=== PATIENT | female | born 1960 | race Two or more races ===

== ENCOUNTER 2024-01-31 21:29 | Emergency (ER) | payer BC, SELFPAY ==
[2024-01-31 21:29] VITALS: BMI 26.4
[2024-01-31 22:11] VITALS: BP 153/70; PULSE 122; RESP 24; TEMP 39.6; O2SAT 93
--- NOTE | 2024-01-31 22:13 | PC.NURSE ---
sepsis alert called
--- NOTE | 2024-01-31 22:17 | PD.EDRME ---
Rapid Medical Screening Exam RME Arrival date/time: 01/31/24 21:29 63-year-old female past medical history of asthma presents emergency department complaining of cough and difficulty breathing. Chief Complaint: Flu Like Symptoms Time Seen by Provider: 01/31/24 22:09 Vital signs: Vital Signs Temperature 103.2 F H 01/31/24 22:11 Pulse Rate 122 H 01/31/24 22:11 Respiratory Rate 24 H 01/31/24 22:11 Blood Pressure 153/70 H 01/31/24 22:11 Pulse Oximetry (%) 93 L 01/31/24 22:11 Oxygen Delivery Method Room Air 01/31/24 22:11 Vital signs reviewed by provider: Yes
--- NOTE | 2024-01-31 22:18 | EKG_ITS ---
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
--- NOTE | 2024-01-31 22:18 | XR_ITS ---
Examination: AP lateral chest 2 views Technique: Upright AP lateral chest 2 views Exam date and time: January 31, 2024 1023 hrs. Indications: Sepsis protocol coughing today Findings: Mild accentuation of bronchovascular markings Biapical pleural thickening. Normal heart size No lobar pneumonia Impression: Bronchitis pattern
[2024-01-31 22:34] VITALS: PULSE 117
[2024-01-31] MEDS: SODIUM CHLORIDE RT SOL 0.9% 3 ML NEBU INH (22:34)
[2024-01-31] MEDS: ALBUTEROL RT 2.5 MG/0.5 ML NEBU 10 MG INH (22:34)
[2024-01-31] MEDS: IPRATROPIUM RT 0.5 MG/ 2.5 ML NEBU 1 MG INH (22:34)
[2024-01-31 22:39] VITALS: PULSE 117; PULSE 135; RESP 22; RESP 99; O2SAT 98
[2024-01-31 22:42] VITALS: TEMP 39.6
[2024-01-31 22:42] LABS: Basophils % (Auto) 0 % (0-2.5); Eosinophils # (Auto) 0.1 Thou/mm3 (0.0-0.5); Eosinophils % (Auto) 1 % (0-10); Hemoglobin 14.3 g/dL (12.0-16.0); Immature Granulocytes % (Auto) 1 % (0-0); Immature Granulocytes Auto 0.06 Thou/mm3 (0.00-0.00); Lymphocytes # (Auto) 0.9 Thou/mm3 (1.0-4.8); Lymphocytes % (Auto) 8 % (10-50); Mean Corpuscular Hemoglobin 28.9 pg (25.0-35.0); Mean Corpuscular Volume 85 fL (80-100); Monocytes # (Auto) 0.5 Thou/mm3 (0.0-0.8); Monocytes % (Auto) 5 % (0-12); Neutrophils # (Auto) 9.3 Thou/mm3 (1.8-7.7); Neutrophils % (Auto) 86 % (37-80); Nucleated Red Blood Cell % 0 /100 WBC (0); Platelet Count 148 Thou/mm3 (140-440); RDW Standard Deviation 40.3 fL (36.4-46.3); Red Blood Count 4.94 Miln/mm3 (4.00-5.20); White Blood Count 10.9 Thou/mm3 (3.6-11.0)
[2024-01-31] MEDS: ACETAMINOPHEN 500 MG TABLET 1000 MG PO (22:42)
[2024-01-31 22:55] LABS: Partial Thromboplastin Time 27.6 Seconds (22.0-36.0); Prothrombin Time 10.8 Seconds (9.0-12.2)
[2024-01-31 22:56] LABS: B-Type Natriuretic Peptide 24 pg/mL (0-100)
[2024-01-31 23:01] LABS: Alanine Aminotransferase 31 U/L (10-49); Albumin, Serum 4.8 gm/dL (3.4-4.8); Albumin/Globulin Ratio 1.8 (1.2-2.2); Alkaline Phosphatase 73 U/L (46-116); Anion Gap 7 (7-16); Aspartate Amino Transferase 28 U/L (0-34); BUN/Creatinine Ratio 11 Ratio (12-20); Bilirubin,Total 0.6 mg/dL (0.3-1.2); Blood Urea Nitrogen 9 mg/dL (9-23); Calcium 9.8 mg/dL (8.3-10.6); Calcium (Corrected) 9.8 mg/dL (8.5-10.1); Carbon Dioxide 25.8 mMol/L (20.0-31.0); Chloride 105 mMol/L (98-107); Creatinine (Component) 0.8 mg/dL (0.6-1.3); Estimated Creatinine Clearance 60.7 mL/min (>60); Globulin 2.6 gm/dL (2.3-3.5); Glucose 133 mg/dL (74-106); Lipase 39 U/L (12-53); Magnesium 2.1 mg/dL (1.6-2.6); Osmolality,Calculated 276 (275-295); Potassium 4.2 mMol/L (3.4-5.1); Sodium 138 mMol/L (136-145); Total Protein 7.4 gm/dL (5.7-8.2); Troponin I < 0.002 ng/mL (0.0-0.045); eGFR > 60 See Note
[2024-01-31 23:05] LABS: Procalcitonin 0.17 ng/ml (0.0-0.49)
--- NOTE | 2024-02-01 00:15 | EDNOTE_ITS ---
Upper Respiratory Inf. RME/HPI General Chief Complaint: Flu Like Symptoms Stated Complaint: COUGHING X2DAYS Time Seen by Provider: 01/31/24 22:09 Source: patient Arrival date/time: 01/31/24 21:29 63-year-old female past medical history of asthma presents emergency department complaining of cough and difficulty breathing for 2 days. Mode of arrival: ambulatory Limitations: no limitations RME / HPI RME / HPI Narrative: 01/31/24 21:29 63-year-old female past medical history of asthma presents emergency department complaining of cough and difficulty breathing. Related Data Home Medications ?Medication ?Instructions ?Recorded ?Confirmed albuterol sulfate 2.5 mg/3 mL 2.5 mg inhalation QID PRN Wheezing 03/29/20 06/25/21 (0.083 %) solution for nebulization albuterol sulfate 90 mcg/actuation 2 inh inhalation Q4H PRN Wheezing 03/29/20 06/25/21 breath activated powder inhaler (ProAir RespiClick) alendronate 70 mg tablet 70 mg PO QWEEK 03/29/20 06/25/21 budesonide-formoterol HFA 160 2 puff inhalation BID 03/29/20 06/25/21 mcg-4.5 mcg/actuation aerosol inhaler (Symbicort) multivitamin with minerals-folic 1 tab PO DAILY 03/29/20 06/25/21 acid 200 mcg chewable tablet ubrogepant 100 mg tablet (Ubrelvy) 200 mg PO DAILY PRN Migraine 03/29/20 06/25/21 Headache metoprolol succinate 50 mg 1 tab PO DAILY 06/24/21 06/25/21 tablet,extended release 24 hr Previous Rx's ?Medication ?Instructions ?Recorded hydrocodone 5 mg-acetaminophen 325 1 tab PO TID #20 tabs 06/21/21 mg tablet naproxen 500 mg tablet (Naprosyn) 500 mg PO BID PRN pain #30 tabs 06/21/21 albuterol sulfate 1.25 mg/3 mL 1.25 mg (3 mL) inhalation QID PRN 12/30/22 solution for nebulization shortness of breath or wheezing #75 mL benzonatate 100 mg capsule 100 mg PO TID #14 caps 09/21/23 benzonatate 100 mg capsule 100 mg PO BID #20 caps 02/01/24 oseltamivir 75 mg capsule (Tamiflu) 75 mg PO BID 5 days #10 caps 02/01/24 Allergies Allergy/AdvReac Type Severity Reaction Status Date / Time almond Allergy Abdominal Verified 09/21/23 09:43 Pain cashew nut Allergy Abdominal Verified 09/21/23 09:43 Pain pistachio nut Allergy Abdominal Verified 09/21/23 09:43 Pain Review of Systems Review of Systems Systems Reviewed: All systems reviewed, normal except as documented Constitutional Constitutional: Reports system reviewed and no additional complaints, except as documented, Denies body ache(s), Denies chills and Denies fever(s) Eyes Eyes: Reports system reviewed and no additional complaints, except as documented and Denies change in vision ENT Ears, Nose, Mouth, and Throat: Reports system reviewed and no additional complaints, except as documented, Denies disequilibrium, Denies dizziness, Denies sore throat and Denies vertigo Cardiovascular Cardiovascular: Reports system reviewed and no additional complaints, except as documented, Denies chest pain and Reports dyspnea Respiratory Respiratory: Reports system reviewed and no additional complaints, except as documented, Reports cough and Reports dyspnea Gastrointestinal Gastrointestinal: Reports system reviewed and no additional complaints, except as documented, Denies abdominal pain, Denies nausea and Denies vomiting Musculoskeletal Musculoskeletal: Reports system reviewed and no additional complaints, except as documented, Denies abnormal gait and Denies arthralgias Integumentary/Breasts Skin/Breast: Reports system reviewed and no additional complaints, except as documented, Denies erythema, Denies rash and Denies wounds Neurologic Neurologic: Reports system reviewed and no additional complaints, except as documented, Denies abnormal gait, Denies disequilibrium, Denies dizziness and Denies vertigo Past Medical History Past Medical History NEUROLOGIC: Positive Neurological Disorders, Migraine (TAKES MED) and Head Trauma (2009 MD VISIT DUE TO FALL); Negative Seizures CARDIAC: Positive Cardiac Disorders and Hypertension (TAKES MED); Negative Congestive Heart Failure, Edema, Cellulitis (CAST TO RIGHT ARM DUE TO FALL 06/20/21 FOR THIS PROC) or Varicose Veins RESPIRATORY: Positive Asthma (HAS INHALER) and Pneumonia (HOSP 1978); Negative Chronic Obstructive Pulmonary Disease (COPD) (HAS INHALERS), Tuberculosis, Pulmonary Embolism or Sleep Apnea GASTROINTESTINAL: Negative Gastrointestinal Disorders or Hepatitis GENITOURINARY: Negative Genitourinary Disorders or Renal Disease REPRODUCTIVE: Positive Previous Pregnancies (X2) MUSCULOSKELETAL: Positive Musculoskeletal Disorders, Arthritis and Fractures (RIGHT WRIST FOR THIS PROC FELL 06/20/21) ENT: Positive Head Trauma (2010 MD VISIT DUE TO FALL) ENDOCRINE: Negative Endocrine Disorders, Diabetes Mellitus Type 1 or Diabetes Mellitus Type 2 HEMATOLOGIC: Negative Blood Disorders OTHER HISTORY: Positive Hospitalization (HOSP FOR PNUEMONIA 1977,HOSP FOR ASTHMA S), Shingles (), Falls (06/20/21 FOR THIS PROC), Anesthesia Reactions (WAKES UP EARLY) and Chicken Pox; Negative Autoimmune Disease, Blood Transfusions, Chemotherapy, Radiation Therapy, MRSA, Measles, Mumps or Cancer Family History FAMILY HISTORY: Positive Family Respiratory Disorders (MOTHER,SISTERS (ASTHMA)), Family Cardiac Disorders (MOTHER,FATHER (PR)FATHER,SISTER,BROTHER(HTN)), Family Gastrointestinal Problems (FATHER (ULCER)) and Family Surgery (MOTHER,FATHER,SISTERS); Negative Family Psychiatric Problems, Family Cancer or Family Anesthesia Reaction Surgical History SURGICAL: Positive Section (X2); Negative Pacemaker Social History SMOKING STATUS: Never smoker ED Exam General Limitations: Present no limitations General appearance: Present alert and in no apparent distress Head Head exam: Present atraumatic Eye Eye exam: Present normal appearance, PERRL and EOMI ENT ENT exam: Present normal exam, normal oropharynx and mucous membranes moist Neck Neck exam: Present normal inspection, full ROM and trachea midline Chest Chest inspection: Present normal inspection and symmetric chest wall rise Respiratory Respiratory exam: Present normal lung sounds bilaterally, respiratory distress and wheezes Cardiovascular Cardiovascular exam: Present regular rate, normal rhythm and normal heart sounds Abdominal Exam Abdominal exam: Present soft and normal bowel sounds Extremities Exam Extremities exam: Present normal inspection and full ROM Back Exam Back exam: Present normal inspection and full ROM Neurological Exam Neurological exam: Present alert, oriented X3 and CN II-XII intact Psychiatric Psychiatric exam: Present normal affect and normal mood Skin Skin exam: Present warm, dry, intact and normal color Course Quality Measures none Orders Category Date Time Status Bedside Influenza A&B Antigen Test NOW Care 01/31/24 22:17 Completed Continuous Pulse Oximetry NOW Care 01/31/24 22:17 Completed EKG (ED ONLY) *Do not use* NOW Care 01/31/24 22:19 Completed EKG (ED Only) Stat Exams 01/31/24 22:18 Draft XR chest 2V Stat Exams 01/31/24 22:18 Completed B-Type Natriuretic Peptide Stat Lab 01/31/24 22:29 Completed Blood Culture (Lab) Stat Lab 01/31/24 22:29 Received CBC Stat Lab 01/31/24 22: Completed Comprehensive Metabolic Panel Stat Lab 01/31/24 22:29 Completed Lactate (Lactic Acid) Stat Lab 01/31/24 22:29 Completed Lipase Stat Lab 01/31/24 22:29 Completed Magnesium Stat Lab 01/31/24 22:29 Completed Partial Thromboplastin Time Stat Lab 01/31/24 22:29 Completed Procalcitonin Stat Lab 01/31/24 22:29 Completed Prothrombin Time with INR Stat Lab 01/31/24 22:29 Completed Troponin I Stat Lab 01/31/24 22: Completed ALBUTEROL RT 0.5ml [Proventil Rt 0.5ml] Med 01/31/24 22:19 Discontinued 10 mg INH X1 ONE Acetaminophen Tab [Tylenol ES Tab] Med 01/31/24 22:23 Discontinued 1,000 mg PO X1 ONE Ipratropium [place] Rt Briana [Atrovent Rt Briana] Med 01/31/24 22:19 Discontinued 1 mg INH X1 ONE Sodium Chloride Rt Briana 0.9% [NS Rt Briana 0.9%] Med 01/31/24 22:19 Discontinued 3 ml INH PRN PRN Oxygen Delivery NOW RT 01/31/24 22:18 Completed Vital Signs Vital signs: Vital Signs Temperature 103.2 F H 01/31/24 22:11 Pulse Rate 122 H 01/31/24 22:11 Respiratory Rate 24 H 01/31/24 22:11 Blood Pressure 153/70 H 01/31/24 22:11 Pulse Oximetry (%) 93 L 01/31/24 22:11 Oxygen Delivery Method Room Air 01/31/24 22:11 93% room air within normal limits Procedures -ED EKG Interpretation #1: Date of EK01/31/24 Time of EK:45 Rate: 112 Interpretation: Interpreted by me EKG Impression: No acute ST-T changes, No ectopy, No ischemic changes, Sinus tachycardia and Normal QRS Upper Respiratory Infection MDM Narrative MDM Narrative:: 63-year-old female past medical history of asthma presents emergency department complaining of cough and difficulty breathing for 2 days. Bilateral upper lobe expiratory wheeze with diminished air movement that significantly improved after breathing treatment. Chest x-ray negative for lobar pneumonia but did show bronchitis pattern. CBC was unremarkable for any leukocytosis. CMP was unremarkable for any gross electrolyte abnormalities or elevated LFTs. EKG sinus tach and normal troponin. Patient tested positive for influenza. Patient appears nontoxic and hemodynamically stable. Dr. Astudillo consulted and reports patient is stable for discharge. Patient discharged and instructed to have close follow-up with primary care provider and return to emergency department for any worsening symptoms or as needed. Patient data External records reviewed:: [facility] previous records Clinical information provided by:: patient Social determinants that could affect healthcare access:: none Patient has the following chronic illnesses:: See chart How is presenting disease/condition affected by chronic disease/condition?: exacerbated by Evaluation data The following diagnostics were reviewed and interpreted by me:: lab results, radiology exam(s) and EKG tracing(s) Lab and/or radiology exams considered but not ordered:: Ordered Interpretation Summary: Interpreted by me Medications / Prescriptions Medications or Prescriptions considered but not ordered:: Ordered Medication administrations:: Medication Administration History Discontinued Medications Acetaminophen (Acetaminophen 500 Mg Tablet) 1,000 mg PO X1 ONE Stop: 01/31/24 22:24 Last Admin: 01/31/24 22:42 Dose: 1,000 mg Documented By: OA Albuterol (Albuterol Rt 2.5 Mg/0.5 Ml Nebu) 10 mg INH X1 ONE Stop: 01/31/24 22:20 Last Admin: 01/31/24 22:34 Dose: 10 mg Documented By: GB Ipratropium [place] (Ipratropium Rt 0.5 Mg/ 2.5 Ml Nebu) 1 mg INH X1 ONE Stop: 01/31/24 22:20 Last Admin: 01/31/24 22:34 Dose: 1 mg Documented By: GB Sodium Chloride (Sodium Chloride Rt Briana 0.9% 3 Ml Nebu) 3 ml INH PRN PRN PRN Reason: SOLN Stop: 03/01/24 22:18 Last Admin: 01/31/24 22:34 Dose: 3 ml Documented By: ANDRÉS Given Consultations Consultation(s) initiated? (list below): No Diagnosis Upper Respiratory Differential Diagnosis: upper respiratory infection, sinusitis, viral infection, bronchitis, influenza and pharyngitis Most likely diagnosis given after review of the tests above:: Influenza Admission Indicated Admission indicated?: not indicated Admission Request Was there a request for admission?: No Disposition Plan Disposition Plan: Discharge Discharge Attestation Discharge Attestation: The patient and all family members were given an opportunity to ask questions and understood the discharge instructions. Discharge instructions specifically effects, indications for sooner follow up or return to the emergency department, and the expected course of current diagnosis. Patient condition: Stable Discharge Plan Plan Patient Disposition: HOME (Self Care) Disposition Comment: Stable Prescriptions/Referrals Prescriptions/Med Rec: New oseltamivir [Tamiflu] 75 mg capsule 75 mg PO BID 5 Days Qty: 10 0RF benzonatate 100 mg capsule 100 mg PO BID Qty: 20 0RF No Action metoprolol succinate 50 mg tablet extended release 24 hr 1 tab PO DAILY Patient Comments: take 1 tablet by mouth at bedtime albuterol sulfate 2.5 mg /3 mL (0.083 %) Solution For Nebulization 2.5 mg INHALATION QID PRN (Reason: Wheezing) ProAir RespiClick 90 mcg/actuation Aerosol Powdr Breath Activated 2 inh INHALATION Q4H PRN (Reason: Wheezing) budesonide-formoterol [Symbicort] 160-4.5 mcg/actuation Hfa Aerosol Inhaler 2 puff INHALATION BID Ubrelvy 100 mg Tablet 200 mg PO DAILY PRN (Reason: Migraine Headache) alendronate 70 mg Tablet 70 mg PO QWEEK multivit with min-folic acid 200 mcg Tablet,Chewable 1 tab PO DAILY hydrocodone-acetaminophen 5-325 mg tablet 1 tab PO TID MDD 3 Qty: 20 0RF naproxen [Naprosyn] 500 mg tablet 500 mg PO BID PRN (Reason: pain) Qty: 30 0RF albuterol sulfate 1.25 mg/3 mL solution for nebulization 1.25 mg inhalation QID PRN (Reason: shortness of breath or wheezing) Qty: 75 0RF benzonatate 100 mg capsule 100 mg PO TID Qty: 14 0RF Referrals: Magi Arias MD [Primary Care Provider] - In 1 week Problem List Clinical Impression: Influenza Patient/Caregiver Discharge Instructions Discharge Activity: activity as tolerated Education Materials: ED Influenza (Adult) Additional Instructions: Drink plenty of fluids and get plenty of rest. Take medication as prescribed. Close follow-up with primary care provider in 2 to 3 days. Return to emergency department for any worsening symptoms or as needed. 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 Astudillo
[2024-02-01 00:19] VITALS: BP 127/75; PULSE 108; RESP 18; TEMP 37.1; O2SAT 94
[2024-02-01 00:43] VITALS: BP 122/82; PULSE 88; RESP 16; O2SAT 99
== END 2024-02-01 00:44 | disposition home or self-care (01) ==
PROVIDERS: Emergency Provider Emergency Medicine; PCP Internal Medicine
DX: J11.1 Influenza due to unidentified influenza virus with other respiratory manifestations (principal); J45.909 Unspecified asthma, uncomplicated
CPT/HCPCS: 36415; 71046; 80053; 81001; 83605; 83690; 83735; 83880; 84145; 84484; 85025; 85610; 85730; 87040; 87086; 87400; 93005; 94644; 99283; A9270

== ENCOUNTER 2024-04-09 12:59 | Emergency (ER) | payer BC, SELFPAY ==
[2024-04-09 13:01] VITALS: BMI 25.4
--- NOTE | 2024-04-09 13:15 | XR_ITS ---
Examination: PA lateral chest 2 views Technique: Upright PA lateral chest 2 views Exam date and time: April 09, 2024 1325 hrs. Comparison 08/31/2023 Indications: Coughing bodyaches beginning 2 days ago. Findings: Again noted pleural parenchymal scarring left apex Accentuation bronchovascular markings. No interval lobar pneumonia. Normal heart size Impression: Bronchitis pattern
[2024-04-09 13:16] VITALS: BP 129/77; PULSE 107; RESP 20; TEMP 37.3; O2SAT 98
--- NOTE | 2024-04-09 13:16 | PD.EDRME ---
Rapid Medical Screening Exam RME Arrival date/time: 04/09/24 12:59 63 yo f present to ED for c/o of flu like sx for 2 days I have greeted and performed a focused initial assessment of this patient. A comprehensive ED assessment and evaluation of the patient, analysis of all test results, and completion of the medical decision making process will be conducted by additional ED providers. Chief Complaint: Flu Like Symptoms Time Seen by Provider: 04/09/24 13:13 Vital signs: Vital Signs Temperature 99.2 F 04/09/24 13:16 Pulse Rate 107 H 04/09/24 13:16 Respiratory Rate 20 04/09/24 13:16 Blood Pressure 129/77 04/09/24 13:16 Pulse Oximetry (%) 98 04/09/24 13:16 Oxygen Delivery Method Room Air 04/09/24 13:16
[2024-04-09] MEDS: IBUPROFEN TAB 600 MG TABLET PO (13:30)
[2024-04-09] MEDS: ACETAMINOPHEN 500 MG TABLET 1000 MG PO ×2 (13:30→18:45)
[2024-04-09 15:02] LABS: Basophils % (Auto) 0 % (0-2.5); Eosinophils % (Auto) 0 % (0-10); Hematocrit 40.1 % (36.0-46.0); Hemoglobin 13.7 g/dL (12.0-16.0); Immature Granulocytes % (Auto) 1 % (0-0); Immature Granulocytes Auto 0.08 Thou/mm3 (0.00-0.00); Lymphocytes # (Auto) 1.2 Thou/mm3 (1.0-4.8); Lymphocytes % (Auto) 17 % (10-50); Mean Corpuscular HGB Conc 34.2 g/dl (31.0-37.0); Mean Corpuscular Hemoglobin 29.2 pg (25.0-35.0); Mean Corpuscular Volume 86 fL (80-100); Monocytes # (Auto) 0.8 Thou/mm3 (0.0-0.8); Monocytes % (Auto) 11 % (0-12); Neutrophils # (Auto) 5.1 Thou/mm3 (1.8-7.7); Neutrophils % (Auto) 70 % (37-80); Nucleated Red Blood Cell % 0 /100 WBC (0); Platelet Count 143 Thou/mm3 (140-440); RDW Standard Deviation 43.1 fL (36.4-46.3); Red Blood Count 4.69 Miln/mm3 (4.00-5.20); White Blood Count 7.2 Thou/mm3 (3.6-11.0)
[2024-04-09 15:16] LABS: Alanine Aminotransferase 27 U/L (10-49); Albumin, Serum 4.4 gm/dL (3.4-4.8); Albumin/Globulin Ratio 1.8 (1.2-2.2); Alkaline Phosphatase 58 U/L (46-116); Anion Gap 9 (7-16); Aspartate Amino Transferase 29 U/L (0-34); BUN/Creatinine Ratio 10 Ratio (12-20); Bilirubin,Total 0.6 mg/dL (0.3-1.2); Blood Urea Nitrogen 8 mg/dL (9-23); Calcium 9.1 mg/dL (8.3-10.6); Calcium (Corrected) 9.1 mg/dL (8.5-10.1); Carbon Dioxide 23.7 mMol/L (20.0-31.0); Chloride 108 mMol/L (98-107); Creatinine (Component) 0.8 mg/dL (0.6-1.3); Estimated Creatinine Clearance 59.6 mL/min (>60); Globulin 2.5 gm/dL (2.3-3.5); Glucose 103 mg/dL (74-106); Osmolality,Calculated 279 (275-295); Potassium 4.1 mMol/L (3.4-5.1); Sodium 141 mMol/L (136-145); Total Protein 6.9 gm/dL (5.7-8.2); eGFR > 60 See Note
[2024-04-09 18:06] VITALS: BP 137/86; PULSE 96; RESP 20; TEMP 36.8; O2SAT 95
--- NOTE | 2024-04-09 18:34 | PD.EDURI ---
Upper Respiratory Inf. RME/HPI General Chief Complaint: Flu Like Symptoms Stated Complaint: COLD CHILLS, COUGH, NEWTON, ASTHMA, ACHY Time Seen by Provider: 04/09/24 13:13 Arrival date/time: 04/09/24 12:59 This is a 63-year-old female that comes in with complaints of cough, chills, headache, runny nose that started 3 days ago. Patient states that she feels like her asthma is exacerbated with this episode. Patient also has a history of high blood pressure and migraine headaches. RME / HPI RME / HPI Narrative: 04/09/24 12:59 63 yo f present to ED for c/o of flu like sx for 2 days I have greeted and performed a focused initial assessment of this patient. A comprehensive ED assessment and evaluation of the patient, analysis of all test results, and completion of the medical decision making process will be conducted by additional ED providers. Related Data Home Medications ?Medication ?Instructions ?Recorded ?Confirmed albuterol sulfate 2.5 mg/3 mL 2.5 mg inhalation QID PRN Wheezing 03/29/20 06/25/21 (0.083 %) solution for nebulization albuterol sulfate 90 mcg/actuation 2 inh inhalation Q4H PRN Wheezing 03/29/20 06/25/21 breath activated powder inhaler (ProAir RespiClick) alendronate 70 mg tablet 70 mg PO QWEEK 03/29/20 06/25/21 budesonide-formoterol HFA 160 2 puff inhalation BID 03/29/20 06/25/21 mcg-4.5 mcg/actuation aerosol inhaler (Symbicort) multivitamin with minerals-folic 1 tab PO DAILY 03/29/20 06/25/21 acid 200 mcg chewable tablet ubrogepant 100 mg tablet (Ubrelvy) 200 mg PO DAILY PRN Migraine 03/29/20 06/25/21 Headache metoprolol succinate 50 mg 1 tab PO DAILY 06/24/21 06/25/21 tablet,extended release 24 hr Previous Rx's ?Medication ?Instructions ?Recorded hydrocodone 5 mg-acetaminophen 325 1 tab PO TID #20 tabs 06/21/21 mg tablet naproxen 500 mg tablet (Naprosyn) 500 mg PO BID PRN pain #30 tabs 06/21/21 albuterol sulfate 1.25 mg/3 mL 1.25 mg (3 mL) inhalation QID PRN 12/30/22 solution for nebulization shortness of breath or wheezing #75 mL benzonatate 100 mg capsule 100 mg PO TID #14 caps 09/21/23 benzonatate 100 mg capsule 100 mg PO BID #20 caps 02/01/24 ibuprofen 800 mg tablet 800 mg PO Q6H PRN pain #10 tabs 04/09/24 promethazine-DM 6.25 mg-15 mg/5 mL 5 ml PO Q6H PRN cough #120 mL 04/09/24 oral syrup Allergies Allergy/AdvReac Type Severity Reaction Status Date / Time almond Allergy Abdominal Verified 04/09/24 13:04 Pain cashew nut Allergy Abdominal Verified 04/09/24 13:04 Pain pistachio nut Allergy Abdominal Verified 04/09/24 13:04 Pain Review of Systems Review of Systems Systems Reviewed: All systems reviewed, normal except as documented Past Medical History Past Medical History NEUROLOGIC: Positive Neurological Disorders, Migraine (TAKES MED) and Head Trauma (2010 MD VISIT DUE TO FALL); Negative Seizures CARDIAC: Positive Cardiac Disorders and Hypertension (TAKES MED); Negative Congestive Heart Failure, Edema, Cellulitis (CAST TO RIGHT ARM DUE TO FALL 06/20/21 FOR THIS PROC) or Varicose Veins RESPIRATORY: Positive Asthma (HAS INHALER) and Pneumonia (HOSP 1977); Negative Chronic Obstructive Pulmonary Disease (COPD) (HAS INHALERS), Tuberculosis, Pulmonary Embolism or Sleep Apnea GASTROINTESTINAL: Negative Gastrointestinal Disorders or Hepatitis GENITOURINARY: Negative Genitourinary Disorders or Renal Disease REPRODUCTIVE: Positive Previous Pregnancies (X2) MUSCULOSKELETAL: Positive Musculoskeletal Disorders, Arthritis and Fractures (RIGHT WRIST FOR THIS PROC FELL 06/20/21) ENT: Positive Head Trauma (2010 MD VISIT DUE TO FALL) ENDOCRINE: Negative Endocrine Disorders, Diabetes Mellitus Type 1 or Diabetes Mellitus Type 2 HEMATOLOGIC: Negative Blood Disorders OTHER HISTORY: Positive Hospitalization (HOSP FOR PNUEMONIA 1977,HOSP FOR ASTHMA 1969'), Shingles (), Falls (06/20/21 FOR THIS PROC), Anesthesia Reactions (WAKES UP EARLY) and Chicken Pox; Negative Autoimmune Disease, Blood Transfusions, Chemotherapy, Radiation Therapy, MRSA, Measles, Mumps or Cancer Family History FAMILY HISTORY: Positive Family Respiratory Disorders (MOTHER,SISTERS (ASTHMA)), Family Cardiac Disorders (MOTHER,FATHER (NE)FATHER,SISTER,BROTHER(HTN)), Family Gastrointestinal Problems (FATHER (ULCER)) and Family Surgery (MOTHER,FATHER,SISTERS); Negative Family Psychiatric Problems, Family Cancer or Family Anesthesia Reaction Surgical History SURGICAL: Positive Section (X2); Negative Pacemaker Social History SMOKING STATUS: Never smoker ED Exam General General appearance: Present alert and in no apparent distress Head Head exam: Present atraumatic Eye Eye exam: Present normal appearance, PERRL and EOMI ENT ENT exam: Present normal exam, normal oropharynx and mucous membranes moist Neck Neck exam: Present normal inspection, full ROM and trachea midline Chest Chest inspection: Present normal inspection and symmetric chest wall rise Respiratory Respiratory exam: Present normal lung sounds bilaterally Cardiovascular Cardiovascular exam: Present regular rate Abdominal Exam Abdominal exam: Present soft Extremities Exam Extremities exam: Present normal inspection and full ROM Back Exam Back exam: Present normal inspection and full ROM Neurological Exam Neurological exam: Present alert, oriented X3 and CN II-XII intact Psychiatric Psychiatric exam: Present normal affect and normal mood Skin Skin exam: Present warm, dry, intact and normal color Course Quality Measures none Orders Category Date Time Status Bedside COVID-19 Antigen Test NOW Care 04/09/24 13:15 Completed Bedside Influenza A&B Antigen Test NOW Care 04/09/24 13:15 Completed XR chest 2V Stat Exams 04/09/24 13:15 Completed CBC Stat Lab 04/09/24 14:42 Completed CMP [Comprehensive Metabolic Panel] Stat Lab 04/09/24 14:42 Completed Acetaminophen Tab [Tylenol ES Tab] Med 04/09/24 13:15 Discontinued 1,000 mg PO X1 ONE Acetaminophen Tab [Tylenol ES Tab] Med 04/09/24 18:40 Discontinued 1,000 mg PO X1 ONE Ibuprofen Tab [Motrin Tab] Med 04/09/24 13:16 Discontinued 600 mg PO X1 ONE Promethazine/Dextromethorph [Phenergan Dm Syrup] Med 04/09/24 18:40 Discontinued 5 ml PO X1 ONE Vital Signs Vital signs: Vital Signs Temperature 99.2 F 04/09/24 13:16 Pulse Rate 107 H 04/09/24 13:16 Respiratory Rate 20 04/09/24 13:16 Blood Pressure 129/77 04/09/24 13:16 Pulse Oximetry (%) 98 04/09/24 13:16 Oxygen Delivery Method Room Air 04/09/24 13:16 Upper Respiratory Infection MDM Narrative MDM Narrative:: Patient given Tylenol ibuprofen for pain. Patient does feel better but still having a lot of coughing. Prior to patient leaving I gave her another dose of Tylenol with already been 5 hours. And I will give her some promethazine DM. Patient told to follow-up with primary provider in 1 to 2 days. Come back to the emergency room if symptoms change or worsen. Patient comfortable with plan of care. chest x ray: Findings: Again noted pleural parenchymal scarring left apex Accentuation bronchovascular markings. No interval lobar pneumonia. Normal heart size Impression: Bronchitis pattern Patient data External records reviewed:: [facility] previous records Clinical information provided by:: patient Social determinants that could affect healthcare access:: none Patient has the following chronic illnesses:: see note How is presenting disease/condition affected by chronic disease/condition?: no chronic disease Evaluation data The following diagnostics were reviewed and interpreted by me:: lab results and radiology exam(s) Lab and/or radiology exams considered but not ordered:: see note Interpretation Summary: see note Medications / Prescriptions Medications or Prescriptions considered but not ordered:: none Medication administrations:: Medication Administration History Discontinued Medications Acetaminophen (Acetaminophen 500 Mg Tablet) 1,000 mg PO X1 ONE Stop: 04/09/24 13:16 Last Admin: 04/09/24 13:30 Dose: 1,000 mg Documented By: NIDHI Acetaminophen (Acetaminophen 500 Mg Tablet) 1,000 mg PO X1 ONE Stop: 04/09/24 18:41 Last Admin: 04/09/24 18:45 Dose: 1,000 mg Documented By: NIDHI Ibuprofen (Ibuprofen Tab 600 Mg Tablet) 600 mg PO X1 ONE Stop: 04/09/24 13:17 Last Admin: 04/09/24 13:30 Dose: 600 mg Documented By: NIDHI Promethazine HCl/Dextromethorphan (Promethazine/Dm Syrup 5 Ml Dose) 5 ml PO X1 ONE; Protocol Stop: 04/09/24 18:41 Last Admin: 04/09/24 18:52 Dose: 5 ml Documented By: NIDHI see mar Consultations Consultation(s) initiated? (list below): No Diagnosis Upper Respiratory Differential Diagnosis: upper respiratory infection, sinusitis, viral infection, bronchitis and influenza Most likely diagnosis given after review of the tests above:: uri Admission Indicated Admission indicated?: not indicated Admission Request Was there a request for admission?: No Disposition Plan Disposition Plan: Discharge Discharge Attestation Discharge Attestation: The patient and all family members were given an opportunity to ask questions and understood the discharge instructions. Discharge instructions specifically effects, indications for sooner follow up or return to the emergency department, and the expected course of current diagnosis. Patient condition: Stable Discharge Plan Plan Patient Disposition: HOME (Self Care) Patient condition on transfer: Stable Prescriptions/Referrals Prescriptions/Med Rec: New promethazine-DM 6.25-15 mg/5 mL syrup 5 ml PO Q6H PRN (Reason: cough) Qty: 120 0RF ibuprofen 800 mg tablet 800 mg PO Q6H PRN (Reason: pain) Qty: 10 0RF No Action metoprolol succinate 50 mg tablet extended release 24 hr 1 tab PO DAILY Patient Comments: take 1 tablet by mouth at bedtime albuterol sulfate 2.5 mg /3 mL (0.083 %) Solution For Nebulization 2.5 mg INHALATION QID PRN (Reason: Wheezing) ProAir RespiClick 90 mcg/actuation Aerosol Powdr Breath Activated 2 inh INHALATION Q4H PRN (Reason: Wheezing) budesonide-formoterol [Symbicort] 160-4.5 mcg/actuation Hfa Aerosol Inhaler 2 puff INHALATION BID Ubrelvy 100 mg Tablet 200 mg PO DAILY PRN (Reason: Migraine Headache) alendronate 70 mg Tablet 70 mg PO QWEEK multivit with min-folic acid 200 mcg Tablet,Chewable 1 tab PO DAILY hydrocodone-acetaminophen 5-325 mg tablet 1 tab PO TID MDD 3 Qty: 20 0RF naproxen [Naprosyn] 500 mg tablet 500 mg PO BID PRN (Reason: pain) Qty: 30 0RF albuterol sulfate 1.25 mg/3 mL solution for nebulization 1.25 mg inhalation QID PRN (Reason: shortness of breath or wheezing) Qty: 75 0RF benzonatate 100 mg capsule 100 mg PO TID Qty: 14 0RF benzonatate 100 mg capsule 100 mg PO BID Qty: 20 0RF Referrals: Magi Arias MD [Primary Care Provider] - In 1 week Problem List Clinical Impression: URI (upper respiratory infection), Cough Patient/Caregiver Discharge Instructions Discharge Activity: activity as tolerated Education Materials: ED URI, Viral, No Abx (Adult) Additional Instructions: Follow up with primary provider in 1-2 days. Come back to ED if symptoms change or worsen Print Language: Israeli Stand Alone Forms: Cassandra Award Info., Patient Portal Info Letter PA/PERIOPERATIVE NURSE Supervising Physician PA/PERIOPERATIVE NURSE Supervising Physician: aurora
[2024-04-09] MEDS: PROMETHAZINE/DM SYRUP 5 ML DOSE PO (18:52)
== END 2024-04-09 18:55 | disposition home or self-care (01) ==
PROVIDERS: Physician Assistant; Emergency Provider Emergency Medicine; PCP Internal Medicine
DX: J06.9 Acute upper respiratory infection, unspecified (principal); J45.909 Unspecified asthma, uncomplicated
CPT/HCPCS: 36415; 71046; 80053; 81001; 85025; 87400; 87811; 99283; A9270

== ENCOUNTER → 2024-09-08 | Outpatient (CLI) | payer MEDICARE, BC, SELFPAY ==
--- NOTE | 2024-09-08 08:30 | XR_ITS ---
Examination: Screening digital mammography, bilateral Computer aided detection 3-D breast Tomosynthesis, bilateral Date and time of exam: September 08, 2024 0820 hours Compared to mammograms dating to November 24, 2019 Indication: Screening Technique: Nonmagnified MLO, CC views of the breasts to been obtained, reconstructed from 3-D Tomosynthesis images. R2 computer aided detection program utilized for evaluation of suspicious masses and/or abnormal calcifications. 3-D Tomosynthesis images obtained. Findings: The breasts are heterogeneously dense, which may obscure small masses Benign calcifications. No interval suspicious masses Impression: BI-RADS category II: Benign Findings. Recommend 1 year follow-up mammogram.
== END | disposition home or self-care (01) ==
LOC: CDIM 08:06
PROVIDERS: PCP Internal Medicine; Referring Provider Specialist; Visit Provider Specialist
DX: Z12.31 Encounter for screening mammogram for malignant neoplasm of breast (principal); R92.323 Mammographic fibroglandular density, bilateral breasts; R92.1 Mammographic calcification found on diagnostic imaging of breast
CPT/HCPCS: 77063; 77067

== ENCOUNTER → 2024-12-13 | Outpatient (CLI) | payer MEDICARE, BC, SELFPAY ==
--- NOTE | 2024-12-13 12:00 | XR_ITS ---
Examination: Bone densitometry Date and time of exam: December 13, 2024, 12:16 p.m. INDICATIONS: Menopause age 50 [place] 18 months, personal history osteoporosis Technique: Lumbar spine and hip total bone mineralization values of an calculated. Peak reference and age match control results have been displayed. Findings: Lumbar spine total bone mineralization is 0.787 gm/cm2. This is 2.4 standard deviations below peak reference. This is 0.6 standard deviations below age-matched controls. Hip total bone mineralization is 0.936 gm/cm2 This is 0.2 standard deviations below peak reference. This is 0.9 standard deviations below age-matched controls Impression: There is osteopenia based on lumbar spine measurements. There is osteopenia based on hip measurements Lumbar mineralization is increased 2.7% compared with September 23, 2022 Hip mineralization is increased 2.8% compared with September 22, 2022
== END | disposition home or self-care (01) ==
LOC: CDIM 11:28
PROVIDERS: PCP Internal Medicine; Referring Provider Internal Medicine; Visit Provider Internal Medicine
DX: M85.89 Other specified disorders of bone density and structure, multiple sites (principal)
CPT/HCPCS: 77080

== ENCOUNTER → 2024-12-15 | Outpatient (CLI) | payer MEDICARE, BC, SELFPAY ==
[2024-12-15 10:14] LABS: Collection Type, Urine Clean Catch
[2024-12-15 10:38] LABS: Basophils # (Auto) 0.1 Thou/mm3 (0.0-0.2); Basophils % (Auto) 1 % (0-2.5); Eosinophils # (Auto) 0.3 Thou/mm3 (0.0-0.5); Eosinophils % (Auto) 4 % (0-10); Hematocrit 42.9 % (36.0-46.0); Hemoglobin 14.5 g/dL (12.0-16.0); Immature Granulocytes Auto 0.09 Thou/mm3 (0.00-0.00); Lymphocytes # (Auto) 2.0 Thou/mm3 (1.0-4.8); Lymphocytes % (Auto) 23 % (10-50); Mean Corpuscular HGB Conc 33.8 g/dl (31.0-37.0); Mean Corpuscular Hemoglobin 29.2 pg (25.0-35.0); Mean Corpuscular Volume 86 fL (80-100); Monocytes # (Auto) 0.6 Thou/mm3 (0.0-0.8); Monocytes % (Auto) 6 % (0-12); Neutrophils # (Auto) 5.8 Thou/mm3 (1.8-7.7); Neutrophils % (Auto) 66 % (37-80); Nucleated Red Blood Cell # 0.00 Thou/mm3 (0.00-0.00); Nucleated Red Blood Cell % 0 /100 WBC (0); Platelet Count 159 Thou/mm3 (140-440); RDW Standard Deviation 40.2 fL (36.4-46.3); Red Blood Count 4.97 Miln/mm3 (4.00-5.20); White Blood Count 8.8 Thou/mm3 (3.6-11.0)
[2024-12-15 10:45] LABS: Bilirubin,Urine Negative (Negative); Blood,Urine Negative (Negative); Clarity,Urine Clear (Clear/Hazy); Color,Urine Lt-Yellow (Lt Yel-Yel); Glucose, Urine Negative (Negative); Ketones,Urine Negative (Negative); Leukocyte Esterase,Urine Negative (Negative); Nitrite,Urine Negative (Negative); PH,Urine 6.0 (5.0-7.0); Protein,Urine Negative (Neg - Trace); RBC,Urine 3 /hpf (0-3); Specific Gravity,Urine 1.019 (1.001-1.035); Squamous Epithelial Cell,Urine < 1 /hpf (0-5); Urobilinogen,Urine Negative mg/dL (0.0-1.0); WBC,Urine 1 /hpf (0-5)
[2024-12-15 11:02] LABS: Vitamin B12 393 pg/mL (211-911); Vitamin D 25 Hydroxy Total 28.5 ng/mL (7.3-40.2)
[2024-12-15 11:03] LABS: Alanine Aminotransferase 42 U/L (10-49); Albumin, Serum 5.1 gm/dL (3.4-4.8); Albumin/Globulin Ratio 2.3 (1.2-2.2); Alkaline Phosphatase 67 U/L (46-116); Anion Gap 7 (7-16); Aspartate Amino Transferase 41 U/L (0-34); BUN/Creatinine Ratio 16 Ratio (12-20); Bilirubin,Direct 0.2 mg/dL (0.0-0.3); Bilirubin,Total 0.6 mg/dL (0.3-1.2); Blood Urea Nitrogen 13 mg/dL (9-23); Calcium 10.1 mg/dL (8.3-10.6); Calcium (Corrected) 10.1 mg/dL (8.5-10.1); Carbon Dioxide 27.6 mMol/L (20.0-31.0); Cardiac Risk Estimate 2.0 RATIO (3.7-5.6); Chloride 107 mMol/L (98-107); Cholesterol 188 mg/dL (132-200); Creatinine (Component) 0.8 mg/dL (0.6-1.3); Free T4 (Free Thyroxine) 1.28 ng/dL (0.89-1.76); Globulin 2.2 gm/dL (2.3-3.5); Glucose 108 mg/dL (74-106); HDL Cholesterol 92 mg/dL (40-60); LDL Cholesterol,Calculated 88 mg/dL (0-130); Osmolality,Calculated 284 (275-295); Potassium 5.1 mMol/L (3.4-5.1); Sodium 142 mMol/L (136-145); Thyroid Stimulating Hormone 1.99 uIU/mL (0.55-4.78); Total Protein 7.3 gm/dL (5.7-8.2); Triglycerides 41 mg/dL (30-150); Uric Acid 5.3 mg/dL (3.1-7.8); eGFR > 60 See Note
== END | disposition home or self-care (01) ==
LOC: COPL 09:31
PROVIDERS: PCP Internal Medicine; Referring Provider Internal Medicine; Visit Provider Internal Medicine Cardiovascular Disease
DX: Z00.00 Encounter for general adult medical examination without abnormal findings (principal); I10 Essential (primary) hypertension; E78.5 Hyperlipidemia, unspecified; I20.9 Angina pectoris, unspecified
CPT/HCPCS: 36415; 80053; 80061; 80076; 81001; 82306; 82607; 84439; 84443; 84550; 85025